=== PATIENT | male | born 1930 | race Caucasian/White ===

== ENCOUNTER 2016-03-30 16:59 | Emergency (ER) | payer OTHER ==
[~2016-03-30] VITALS: Ht 175.3 cm; Wt 78.4 kg
[~2016-03-30 16:59] MED LIST: ALBUAER2 INH; ASPEC325 PO; CLOTRIMAZOLE TD; CRS20 PO; FLM4 PO; METH500T37 PO; NITR0.2D TD; NYSTCRE11 TD; POLY99.02 OP; VLSCR15 TD
[2016-03-30 17:07] VITALS: TEMP 36.4; Ht 175.3 cm; Wt 78.4 kg
[2016-03-30] MEDS ORDERED: BENZOCAIN/TETRACA/BUTAM SPRAY 200 APPLN/20 GM SPRY ONE (17:21)
[2016-03-30] MEDS ORDERED: CANNULA ONE ×2 (17:22)
[2016-03-30] MEDS ORDERED: BENZOCAINE/TETRACAIN/BUTAM CAN 200 APPLN/20 GM CAN EXT ONE (17:30)
--- NOTE | 2016-03-30 17:34 | EMERGENCY ROOM VISIT NOTE ---
"ED Visit Note First contact with patient: 17:12 Chief Complaint: Tongue Stuck, Impaled in Partial Plate History of Present Illness: Patient is an 85-year-old male who presents to the emergency department today for evaluation of his tongue being stuck in his partial. He reports he was attempting to take out his teeth when his tongue became impaled on the lower surface. He reports a moderate amount of pain with movement rating his discomfort a 3/10. He did try rinsing his mouth out which did not work. He denies any bleeding. He does take a baby aspirin, but denies any other anticoagulant use. Medications: Reviewed and discussed with the patient. Allergies: No known allergies. PMH: No pertinent past mental history. SHx: Patient is an 85-year-old male who lives locally. ROS: All pertinent positive and negative review of systems are appropriately documented in the History of Present Illness. Physical Exam: VITAL SIGNS - Vital signs and nursing notes were reviewed. GENERAL - 85-year-old male appearing his stated age who is in no acute distress. Communicates well with provider and answers questions appropriately. HEAD - Normocephalic, Atraumatic. No Ayala's Sign or Raccoon's Eyes. No depressed skull fractures palpable. EYES - PERRL with EOMI bilaterally. NOSE - Midline and without cyanosis. No epistaxis or purulent drainage noted. Septum midline without deviation or septal hematoma noted. MOUTH/OROPHARYNX - LEFT lower tongue caught on metallic piece of the patient's partial dentures. No active bleeding noted. PROCEDURE: Verbal consent was obtained prior to performing the procedure. Cetacaine topical spray was used to anesthetize the tongue locally. The tongue was removed from the partial without complication. Patient tolerated procedure well. No complications were met. ED Course: Patient was seen and evaluated by myself. Procedure to remove the patient's tongue from his partial was performed. Patient tolerate procedure well. Case was discussed with my attending physician who admitted the point of the evaluated the patient and agrees with diagnostic approach and treatment plan. Patient was educated on worrisome symptoms for return visit to the emergency department. Patient discharged home in good condition. Impression: Tongue Caught on Dentures Discharge Instructions: Rinsing your mouth with mouthwash 3 times per day for the next several days to help prevent the development of infection. Return for any changing or worsening symptoms. Current/Historical Medications Scheduled Acetaminophen (Tylenol), 500 MG PO BID Albuterol (Ventolin), 2 PUFFS INH DAILY Amlodipine (Norvasc), 10 MG PO DAILY Artificial Tears (Artificial Tears), 1-2 DROPS OP DAILY Aspirin (Aspirin *), 325 MG PO DAILY Atenolol (Tenormin), 50 MG PO DAILY Betamethasone Elo 0.1% (Valisone 0.1%), 1 APPLN TD BID Finasteride (Proscar), 5 MG PO DAILY Methocarbamol (Robaxin), 500 MG PO DAILY Nitroglycerin (Nitro-Dur 0.2 Mg/Hr), 1 PATCH TD DAILY Nystatin/Triamcinolone (Mycolog ||), 1 APPLN TD BID Primidone (Mysoline), 100 MG PO TID Rosuvastatin Calcium (Crestor *), 20 MG PO DAILY Tamsulosin Hcl (Flomax *), 0.4 MG PO QPM [Clotrimazole], TD BID Allergies Coded Allergies: No Known Allergies (Unverified , 09/16/10) Vital Signs Date Time Temp Pulse Resp B/P Pulse Ox O2 Delivery O2 Flow Rate FiO2 03/30/16 17:41 84 16 174/107 96 Room Air 03/30/16 17:07 36.4 88 20 195/109 93 Room Air Departure Information Impression Primary Impression: Injury of tongue Dispostion Home / Self-Care Condition GOOD Referrals Declan Reynoso M.D. (MEDICAL) (PCP) Patient Instructions My [facility] Additional Instructions Rinsing your mouth with mouthwash 3 times per day for the next several days to help prevent the development of infection. Return for any changing or worsening symptoms. Problem Qualifiers Primary Impression: Injury of tongue Encounter type: initial encounter Qualified Codes: S09.93XA - Unspecified injury of face, initial encounter"
--- NOTE | 2016-03-30 17:35 | EMERGENCY ROOM VISIT NOTE ---
ED Visit Note First contact with patient: 17:12 This Patient was discussed with the physician [employer] Program Coordinator, Ever Sandoval PA-C. The pertinent historical and physical exam findings were confirmed. I agree with the studies ordered and with the interpretations of these studies. I agree with the disposition and care plan.
[2016-03-30 17:41] VITALS: BP 174/107; PULSE 84; O2SAT 96
[2016-10-05] MEDS ORDERED: PRIM50TA29 PO (05:28)
[2016-10-05] MEDS ORDERED: ATEN50TA8 PO (05:31)
[2016-10-05] MEDS ORDERED: AMLO-114 PO (05:32)
[2016-10-05] MEDS ORDERED: ACET-1256 PO (05:39)
[2016-10-05] MEDS ORDERED: FINA5TAB PO (05:46)
== END 2016-03-30 17:41 | disposition home or self-care (01) ==
LOC: C.EDB 17:00 → C.EDD 17:41
DX: S09.93XA Unspecified injury of face, initial encounter (principal); X58.XXXA Exposure to other specified factors, initial encounter; Z79.82 Long term (current) use of aspirin; Z79.899 Other long term (current) drug therapy

== ENCOUNTER 2016-10-05 16:31 | Emergency (ER) | payer OTHER ==
[~2016-10-05] VITALS: Ht 175.3 cm; Wt 70.9 kg
[~2016-10-05 16:31] MED LIST changes: +ACET-1256 PO; +AMLO-114 PO; +ATEN50TA8 PO; +FINA5TAB PO; +PRIM50TA29 PO
[2016-10-05 16:36] VITALS: TEMP 36.7; Ht 175.3 cm; Wt 70.9 kg
[2016-10-05] MEDS ORDERED: [UNRECOGNIZED DRUG - CODE] TOP (17:28)
[2016-10-05] MEDS ORDERED: ALEN70TA2 PO (17:28)
[2016-10-05] MEDS ORDERED: ROSU40TA PO (17:28)
[2016-10-05] MEDS ORDERED: MECL1TAB42 PO (17:28)
[2016-10-05] MEDS ORDERED: LISI-789 PO (17:28)
[2016-10-05] MEDS ORDERED: ASPI81TA28 PO (17:30)
[2016-10-05] MEDS ORDERED: TAMS0.4C38 PO (17:32)
[2016-10-05] MEDS ORDERED: ALBU18002 INH (17:34)
[2016-10-05] MEDS ORDERED: NTRGSL/4 UT (17:34)
[2016-10-05] MEDS ORDERED: SPRIN/30 INH (17:35)
[2016-10-05] MEDS ORDERED: POLYSOL OPB (17:37)
[2016-10-05] MEDS ORDERED: NITR0.2D7 TOP (17:38)
[2016-10-05] MEDS ORDERED: CIPR0.3S OP (18:16)
[2016-10-05] MEDS ORDERED: HYDR-5688 PO (18:16)
[2016-10-05 18:33] VITALS: BP 177/98; PULSE 72; O2SAT 95
--- NOTE | 2016-10-06 20:19 | EMERGENCY ROOM VISIT NOTE ---
ED Visit Note First contact with patient: 16:58 Chief Complaint: My right eye is sore. History of Present Illness: Mr. Lamb and a 5-year-old white male who ambulates into the ED accompanied by his son complaining of right eye pain. Historically patient reports she has no significant eye diseases but has had cataracts removed. Additionally he reports on a daily basis he uses OTC lubricant drops for his eyes. Patient reports approximately 6 hours ago he accidentally put clobetasol propionate topical medication in his right eye. He was at a local [facility] and he reports EMS was at the fair and irrigated his eyes with saline. After his eye was irrigated he was feeling well and was not having any symptoms. He did uses lubricating eyedrops and was feeling fine. As the day progressed he started feeling a soreness under his upper eye lid and he noted light sensitivity and tearing. Currently he rates his discomfort 4/ 10. The pain is nonradiating. The pain worsens with exposure to bright light. He has not identified any alleviating factors related to the pain. He has not taken any medications for pain prior to arrival at the hospital. Associated with his pain he reports he now has a yellowish drainage from the eyes. He denies fevers, chills, sweats, headaches, nausea, vomiting, visual changes, flashing lights, floaters, blurry vision. Review of Systems: As noted above in history of present illness. Past Medical History: Heart disease, hypertension, unspecified skin disorder, asthma, unspecified urinary symptoms. Current Medications: Medications Dose Route/Sig Max Daily Dose Days Date Category Dose Instructions Nitroglycerin 0.2 Mg/Hr Dis 1 Patch TOP ONAMOFFPM 10/05/16 Reported Refresh (Polyvinyl Alcohol-Povidone (Op) 1 Andrea Andrea 1 Drop OPB TID 10/05/16 Reported Spiriva Handihaler (Tiotropium [place]) 30 Puff/540 Mcg Aerp 1 Cap INH DAILY 10/05/16 Reported Nitrostat (Nitroglycerin) 0.4 Mg Tab 0.4 Mg UT UD PRN 10/05/16 Reported Proair Respiclick (Albuterol Sulfate) 108 Mcg/Act Aer 2 Puffs INH Q4H PRN 10/05/16 Reported Flomax (Tamsulosin Hcl) 0.4 Mg Cap 0.4 Mg PO DAILY 10/05/16 Reported Aspirin Ec (Aspirin) 81 Mg Tab 81 Mg PO DAILY 10/05/16 Reported Temovate (Clobetasol Propionate) 0.05 % Alicia 1 Appln TOP DAILY PRN 10/05/16 Reported APPLY TO SCALP NEEDED FOR ITCHING AND FLAKING Fosamax (Alendronate Sodium) 70 Mg Tab 70 Mg PO WK 10/05/16 Reported TAKE THIS MEDICATION EVERY SUNDAY ON AN EMPTY STOMACH WITH 6 TO 8 OUNCES OF WATER. REMAIN UPRIGHT AND TAKE NO FOOD OR ANY OTHER MEDICATIONS FOR 30 MINUTES AFTER TAKING. Meclizine Hcl 25 Mg Tab 12.5 Mg PO QAM 10/05/16 Reported 12.5 TO 25 MG NEEDED FOR DIZZINESS MAY BE TAKEN UP TO 3 TIMES A DAY Zestril (Lisinopril) 2.5 Mg Tab 2.5 Mg PO DAILY 10/05/16 Reported Crestor (Rosuvastatin Calcium) 40 Mg Tab 40 Mg PO DAILY 10/05/16 Reported Proscar (Finasteride) 5 Mg Tab 5 Mg PO DAILY 09/16/10 Reported Tylenol (Acetaminophen) 500 Mg Tab 1,000 Mg PO Q6H PRN 09/16/10 Reported Norvasc (Amlodipine Besylate) 10 Mg Tab 5 Mg PO DAILY 09/16/10 Reported Tenormin (Atenolol) 50 Mg Tab 50 Mg PO HS 09/16/10 Reported Mysoline (Primidone) 50 Mg Tab 100 Mg PO TID 09/16/10 Reported Allergies to Medications: Patient denies. Social History: Patient is currently retired; he feels safe in his home environment; he denies tobacco use and admits to social alcohol use. Physical Examination: Vital Signs: Date Time Temp Pulse Resp B/P (MAP) Pulse Ox O2 Delivery O2 Flow Rate FiO2 10/05/16 18:33 72 17 177/98 95 10/05/16 16:36 36.7 81 16 167/75 94 Room Air GENERAL: 85-year-old male in mild distress due to symptoms, nontoxic-appearing, afebrile and hemodynamically stable. NEUROLOGICAL: Awake, alert and oriented to person, place and time. Answering questions appropriately and following commands. Normal gait. Good hand eye coordination. SKIN: Warm, dry and pink. No soft tissue eruptions or trauma noted. HEENT: Atraumatic and normocephalic. PERRLA. EOMI without nystagmus. Sclera of the right eye is injected and conjunctiva is pink with yellowish drainage. No foreign bodies were noted under the eyelids are embedded in the cornea. The upper eyelid is mildly erythematous and edematous. The anterior chamber is clear. On slit lamp examination with staining shows that the patient has multiple corneal abrasions and a superficial punctate keratitis. Visual acuity : Right 20/50 without correction, Left 20/70 without correction. ED Course: Patient is assessed as noted above. Patient's medication list was reviewed. Alcaine was used to anesthetize the eye for examination. Patient's case was reviewed with Dr. Alicia; independently assessed the patient we agreed on diagnostic approach, treatment, disposition and plan. Patient and son were educated about today's findings and instructed on his treatment plan; they verbalized understanding and agreement with this plan. Clinical Impression: Right eye corneal abrasion. Right eye superficial punctate keratitis. Disposition: Patient discharged home in stable condition accompanied by a son; prior to departure he was reassessed and subjectively reported he was feeling better but still rated his discomfort 4/10. Plan: Patient was prescribed Ciloxan ophthalmic drops; he was encouraged to use 2 drops in the right eye every 4 hours while awake for 5 days. Patient was placed on a sliding pain medication scale of acetaminophen and [place] ; he was educated on narcotic precautions and his name was checked in the state database and no red flags were noted. Patient was encouraged to follow-up with Dr. Pedersen for recheck in 2-3 days. Patient is encouraged return to the ED for recheck sooner for worsening/ uncontrolled pain, visual changes, fevers, vomiting, headaches or any new/ concerning symptoms.
== END 2016-10-05 18:30 | disposition home or self-care (01) ==
LOC: C.EDB 16:31 → C.EDD 18:30
DX: S05.01XA Injury of conjunctiva and corneal abrasion without foreign body, right eye, initial encounter (principal); X58.XXXA Exposure to other specified factors, initial encounter; H16.141 Punctate keratitis, right eye; I11.9 Hypertensive heart disease without heart failure; J45.909 Unspecified asthma, uncomplicated; Z79.899 Other long term (current) drug therapy